=== PATIENT | male | born 1940 | race Caucasian/White ===

== ENCOUNTER → 2017-03-13 | Outpatient (CLI) | payer MEDICARE, OTHER ==
--- NOTE | 2017-03-13 21:51 | MR ---
EXAMINATION TYPE: MR lumbar spine wo con DATE OF EXAM: 03/13/2017 COMPARISON: NONE HISTORY: LBP, lt leg radic CONTRAST: 0 mL intravenous MultiHance. TECHNIQUE: Multiplanar, multisequence images of the lumbar spine were acquired. FINDINGS: L5-S1: No significant disc bulge or disc herniation. No spinal canal stenosis. No foraminal stenosi s. There is loss of disc height through this level. Facet hypertrophy is present. Some severe left f oraminal narrowing is present. L4-L5: Broad-based disc bulge has mild anterior thecal sac flattening. Facet hypertrophy is posterior lateral thecal sac compression. Moderate left foraminal narrowing is present from facet hypertrophy. L3-L4: No significant disc bulge or disc herniation. No spinal canal stenosis. No foraminal stenosi s. Some facet hypertrophy is present without posterior lateral thecal sac compression.. L2-L3: Mild disc bulging is anterior thecal sac flattening. No AP spinal canal stenosis or neural for aminal stenosis is present. No spinal canal stenosis. No foraminal stenosis. . L1-L2: No significant disc bulge or disc herniation. No spinal canal stenosis. No foraminal stenosi s. . T12-L1: No significant disc bulge or disc herniation. No spinal canal stenosis. No foraminal stenos is. . IMPRESSION: 1. Severe left foraminal stenosis L5-S1. Disc bulge and facet hypertrophy. Correlate with left S1 rad icular symptoms. 2. Degenerative disc changes L5-S1. 3. Disc bulging L4-5 with anterior thecal sac flattening. 4. Mild disc bulging with anterior thecal sac flattening L2-3
== END | disposition home or self-care (01) ==
LOC: RADMRIMAIN 16:18
PROVIDERS: ATTEND Family Medicine
DX: M99.73 Connective tissue and disc stenosis of intervertebral foramina of lumbar region (principal); M51.16 Intervertebral disc disorders with radiculopathy, lumbar region; M47.26 Other spondylosis with radiculopathy, lumbar region
CPT/HCPCS: 72148

== ENCOUNTER → 2020-04-25 | Outpatient (CLI) | payer MEDICARE, OTHER ==
--- NOTE | 2020-04-26 15:00 | PE ---
Nuclear medicine PET/CT HISTORY: Right tonsil carcinoma, initial Patient received 11.4 mCi F-18 FDG intravenously in delayed scanning was performed from the skull bas e to the mid thighs. Localization and attenuation correction CT scan was performed. Additionally ther e was small [id number] imaging obtained through the head and neck. No comparisons Chest and neck: At the level of the base of the tongue towards the right of midline as well as the va llecula to the right of midline and level of the palatine tonsil there is hypermetabolic uptake prese nt with some mild asymmetry of soft tissue present. In the submandibular location there is enlargemen t of the jugulodigastric node on the right with associated hypermetabolic uptake. Focus of uptake als o present in the right parotid gland likely due to an affected node on the right. At the level of the thyroid cartilage to the right of midline there is a node which is enlarged due to the sternocleidom astoid muscle on the right and shows associated uptake. There is no evident lung mass. No pleural or pericardial effusion, no suspicious uptake within the ch est. There is no mediastinal, axillary, or hilar adenopathy. There are coronary artery calcifications present. ABDOMEN: No suspicious uptake. There is no ascites. There is no evident suspicious liver mass or retr operitoneal adenopathy. Focus of low-attenuation on axial image 141 in the caudate lobe does not show associated uptake. Large exophytic cyst at the lower pole the left kidney is noted. Atheromatous effie nges present within the aorta. Nonobstructive calculi present in the kidneys bilaterally. Osseous structures: The level of the posterior right shoulder there is a small focus of uptake within the soft tissues which is mild and is indeterminate, may be due to physiologic muscular activity. 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
== END | disposition home or self-care (01) ==
LOC: RADPETMAIN 07:48
PROVIDERS: ATTEND Radiology Diagnostic Radiology
DX: C09.9 Malignant neoplasm of tonsil, unspecified (principal)
CPT/HCPCS: 78815; A9552

== ENCOUNTER → 2021-06-25 | Outpatient (CLI) | payer MEDICARE ==
--- NOTE | 2021-06-26 23:54 | PE ---
EXAMINATION TYPE: PET CT fusion skull to thigh DATE OF EXAM: 06/25/2021 COMPARISON: NONE prior PET/CT April 25, 2020 HISTORY: Head and neck cancer progress study. Surgical treatment for throat cancer May 12, 2020 . Completed chemotherapy and radiation treatment June 25. TECHNIQUE: Following the intravenous administration of 8.36 mCi of F-18 FDG, whole body images are p erformed from the skull base to the midthigh. Images are reviewed on the computer in the coronal, ax ial, and sagittal planes. Reconstructed rotating images are created on independent workstation and r eviewed on the computer. A localization and attenuation correction CT is performed in conjunction w ith the PET scan. Dedicated PET/CT imaging in the neck is performed. Blood glucose level equals 95. SCAN: Subsequent Scan FINDINGS: SKULL BASE AND NECK: No suspicious abnormal hypermetabolic uptake in the neck on current study. Prim cary neoplasm right tongue base not identified on current exam. Abnormal enlarged right neck adenopath y not clearly seen on current study even at level of right parotid gland. CHEST, MEDIASTINUM, AND HILAR REGION: No new areas of abnormal hypermetabolic uptake. ABDOMEN AND PELVIS: No new areas of abnormal hypermetabolic uptake. OSSEOUS STRUCTURES: No new areas of abnormal hypermetabolic uptake. OTHER CT: Mild underlying emphysematous changes are redemonstrated. Moderate coronary artery calcific ation redemonstrated. Few small calcified right renal stones. Large exophytic benign-appearing thin-walled cyst lower pole left kidney redemonstrated. Enlarged prostate consistent with BPH. Mild wall thickening in the urinar y bladder consistent without obstruction from BPH. Multilevel spurring in the spine. Moderate calcified plaque of the abdominal aorta extends into iliac branch vessels. IMPRESSION: Complete positive treatment response as detailed above. No new or residual areas of abnor mal hypermetabolic uptake seen.
== END | disposition home or self-care (01) ==
LOC: RADPETMAIN 16:54
PROVIDERS: ATTEND Internal Medicine Hematology & Oncology
DX: C76.0 Malignant neoplasm of head, face and neck (principal)
CPT/HCPCS: 78815; A9552

== ENCOUNTER → 2022-01-07 | Outpatient (CLI) | payer MEDICARE | END | disposition home or self-care (01) | LOC: RADPETMAIN 10:24 | PROVIDERS: ATTEND Internal Medicine Hematology & Oncology | DX: C76.0 Malignant neoplasm of head, face and neck (principal) | CPT/HCPCS: 78815; A9552 ==

== ENCOUNTER → 2022-10-24 | Outpatient (CLI) | payer MEDICARE ==
--- NOTE | 2022-10-24 16:24 | US ---
EXAMINATION TYPE: US carotid duplex BILAT DATE OF EXAM: 10/24/2022 COMPARISON: NONE CLINICAL HISTORY: I65.8 OCCLUSION AND STENOSIS. Patient states he has been a little forgetful. No HTN per patient. TECHNIQUE: Carotid duplex ultrasound examination. Indirect Doppler criteria was utilized. 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 Elevated bilateral CCA veloci ties. Some hard plaque with posterior shadowing is evident. IMPRESSION: 1. 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 2. Mild plaquing within the right internal carotid artery with less than 50% narrowing based on veloc ities. Criteria for Assigning % of Stenosis / Diameter reduction (Estimation based on the indirect measurements of the internal carotid artery velocities (ICA PSV). 1. Normal (no stenosis)=ICA PSV < 125 cm/s: ratio < 2.0: ICA EDV<40 cm/s. 2. Less than 50% stenosis=ICA PSV < 125 cm/s: ratio < 2.0: ICA EDV<40 cm/s. 3. 50 to 69% stenosis=ICA PSV of 125 to 230 cm/s: ration 2.0 ? 4.0: ICA EDV 40-100 cm/s. 4. Greater than 70% stenosis to near occlusion= ICA PSV > 230 cm/s: ratio > 4.0: ICA EDV > 100 cm/s. 5. Near occlusion= ICA PSV velocities may be low or undetectable: variable ratio and ICA EDV. 6. Total occlusion=unable to detect flow.
== END | disposition home or self-care (01) ==
LOC: RADUSWWP 12:47
PROVIDERS: ATTEND Psychiatry & Neurology Neurology
DX: I65.23 Occlusion and stenosis of bilateral carotid arteries (principal); I65.8 Occlusion and stenosis of other precerebral arteries
CPT/HCPCS: 93880

== ENCOUNTER 2023-03-21 16:21 | Emergency (ER) | payer MEDICARE ==
[2023-03-21 16:29] VITALS: BP 157/74; PULSE 69; RESP 18; TEMP 98.7
--- NOTE | 2023-03-21 16:31 | ED ---
General Adult HPI - General Stated complaint: something stuck in throat Source: patient Mode of arrival: ambulatory Limitations: no limitations - History of Present Illness Initial comments: 82-year-old male presenting to the ED with chief complaint of foreign body sensation. Patient states that he had an upper endoscopy today. States prior to arrival was having lunch and feels like he got a piece of rice or eggroll stuck in his throat. Denies shortness of breath. Denies hemoptysis. Denies chest pain. No other complaints. - Related Data Allergies Allergy/AdvReac Type Severity Reaction Status Date / Time No Known Allergies Allergy Verified 03/21/23 16:29 Review of Systems ROS Statement: Those systems with pertinent positive or pertinent negative responses have been documented in the HPI. ROS Other: All systems not noted in ROS Statement are negative. Past Medical History Past Medical History: Cancer, Dementia, Hypertension Additional Past Medical History / Comment(s): throat cancer History of Any Multi-Drug Resistant Organisms: None Reported Past Surgical History: No Surgical Hx Reported Past Psychological History: No Psychological Hx Reported Smoking Status: Former smoker Past Drug Use History: None Reported General Exam Limitations: no limitations General appearance: alert, in no apparent distress Neck exam: Present: normal inspection Respiratory exam: Present: normal lung sounds bilaterally, other (No respiratory distress) Cardiovascular Exam: Present: regular rate, normal rhythm Extremities exam: Present: normal inspection Back exam: Present: normal inspection Neurological exam: Present: alert Skin exam: Present: warm, dry Course Vital Signs 03/21/23 16:25 Temperature 98.7 F Pulse Rate 69 Respiratory 18 Rate Blood Pressure 157/74 O2 Sat by Pulse 97 Oximetry Medical Decision Making - Medical Decision Making Was pt. sent in by a medical professional or institution (, PA, BALL ASSEMBLER, urgent care, hospital, or penitentiary...) When possible be specific @ -No Did you speak to anyone other than the patient for history (EMS, parent, family, police, friend...)? What history was obtained from this source @ -No Did you review nursing and triage notes (agree or disagree)? Why? @ -I reviewed and agree with nursing and triage notes Were old charts reviewed (outside hosp., previous admission, EMS record, old EKG, old radiological studies, urgent care reports/EKG's, penitentiary records)? Report findings @ -No old charts were reviewed Differential Diagnosis (chest pain, altered mental status, abdominal pain women, abdominal pain men, vaginal bleeding, weakness, fever, dyspnea, syncope, headache, dizziness, GI bleed, back pain, seizure, CVA, palpatations, mental health, musculoskeletal)? @ -Differential Dyspnea: Coronary syndrome, arrhythmia, tamponade, asthma, COPD, pulmonary embolism, pneumonia, pneumothorax, pulmonary effusion, anaphylaxis, diabetic ketoacidosis, flailed chest, pulmonary contusion, diaphragmatic rupture, anemia, neuromuscular, this is not meant to be an all-inclusive list. EKG interpreted by me (3pts min.). @ -None X-rays interpreted by me (1pt min.). @ -None done CT interpreted by me (1pt min.). @ -None done U/S interpreted by me (1pt. min.). @ -None done What testing was considered but not performed or refused? (CT, X-rays, U/S, labs)? Why? @ -None What meds were considered but not given or refused? Why? @ -None Did you discuss the management of the patient with other professionals (professionals i.e. , PA, BALL ASSEMBLER, lab, RT, psych nurse, social media analyst, central aisle cashier, teacher, booking officer, corrections caseworker)? Give summary @ -No Was smoking cessation discussed for >3mins.? @ -No Was critical care preformed (if so, how long)? @ -No Were there social determinants of health that impacted care today? How? (Homelessness, low income, unemployed, alcoholism, drug addiction, transportation, low edu. Level, literacy, decrease access to med. care, assisted, rehab)? @ -No Was there de-escalation of care discussed even if they declined (Discuss DNR or withdrawal of care, Hospice)? DNR status @ -No What co-morbidities impacted this encounter? (DM, HTN, Smoking, COPD, CAD, Cancer, CVA, ARF, Chemo, Hep., AIDS, mental health diagnosis, sleep apnea, morbid obesity)? @ -None Was patient admitted / discharged? Hospital course, mention meds given and route, prescriptions, significant lab abnormalities, going to OR and other pertinent info. @ -Discharge. Patient had foreign body sensation relief with carbonated beverage at this point states that he would like to go home. At this time denies dyspnea. Is having no difficulty tolerating secretions. Discharged home in stable condition. Discussed return precautions with patient verbalizes agreement. Undiagnosed new problem with uncertain prognosis? @ -No Drug Therapy requiring intensive monitoring for toxicity (Heparin, Nitro, Insulin, Cardizem)? @ -No Were any procedures done? @ -No Diagnosis/symptom? @ -Foreign body sensation in throat Acute, or Chronic, or Acute on Chronic? @ -Acute Uncomplicated (without systemic symptoms) or Complicated (systemic symptoms)? @ -Uncomplicated Side effects of treatment? @ -No Exacerbation, Progression, or Severe Exacerbation? @ -No Poses a threat to life or bodily function? How? (Chest pain, USA, MD, pneumonia, PE, COPD, DKA, ARF, appy, cholecystitis, CVA, Diverticulitis, Homicidal, Suicidal, threat to staff... and all critical care pts) @ -No Disposition Clinical Impression: Foreign body sensation in throat Disposition: HOME SELF-CARE Condition: Good Instructions (If sedation given, give patient instructions): Foreign Body I ngestion (ED) Additional Instructions: Please return to the Emergency Department if symptoms worsen or any other concerns. Is patient prescribed a controlled substance at d/c from ED?: No Referrals: Alice Vega DO [Primary Care Provider] - 1-2 days Time of Disposition: 17:00
== END 2023-03-21 17:09 | disposition home or self-care (01) ==
LOC: EC 16:21
DX: T17.228A Food in pharynx causing other injury, initial encounter (principal); I10 Essential (primary) hypertension; Z87.891 Personal history of nicotine dependence
CPT/HCPCS: 99282

== ENCOUNTER → 2023-06-12 | Outpatient (CLI) | payer MEDICARE ==
--- NOTE | 2023-06-12 12:05 | FL ---
ESOPHOGRAM. HISTORY: Dysphagia Esophagram was performed per the air contrast technique. The patient swallowed barium and effervesce nt crystals without difficulty or delay. Esophageal peristalsis and motility appear to be within normal limits. There is no evidence for filling defect, mass or diverticulum. No hiatal hernia seen. Subsequently single contrast cervical esophagram was performed which fails demonstrate evidence for a spiration penetration or mass. IMPRESSION: Unremarkable study.
== END | disposition home or self-care (01) ==
LOC: RADUSWWP 10:54
PROVIDERS: ATTEND Otolaryngology
DX: R13.19 Other dysphagia (principal)
CPT/HCPCS: 74220

== ENCOUNTER → 2023-06-19 | Outpatient (CLI) | payer MEDICARE ==
--- NOTE | 2023-06-19 12:16 | FL ---
COMPARISON: NONE DATE OF EXAM: 06/19/2023 HISTORY: Dysphagia A number of thin and thick substances were ingested under the care of the department of speech pathol ogy. There is no evidence of aspiration or penetration. There is no evidence of obstruction. 59 se conds of fluoroscopy. Anterior hypertrophic spurring and degenerative disc disease. IMPRESSION: 1. No evidence of aspiration or penetration.
== END | disposition home or self-care (01) ==
LOC: RADFLMAIN 11:12
PROVIDERS: ATTEND Otolaryngology
DX: R13.19 Other dysphagia (principal)
CPT/HCPCS: 74230

== ENCOUNTER 2023-09-01 15:02 | Emergency (ER) | payer MEDICARE ==
[2023-09-01 15:08] VITALS: TEMP 98.1
--- NOTE | 2023-09-01 15:39 | ED ---
SOB HPI - General Chief Complaint: Shortness of Breath Stated Complaint: SOB Time Seen by Provider: 09/01/23 15:12 Source: patient, RN notes reviewed, old records reviewed Mode of arrival: ambulatory Limitations: no limitations - History of Present Illness Initial Comments: This is an 82-year-old male to the ER for evaluation of severe shortness of keren th and chest pain. Patient feels well after rest. But patient has refused symptom domes yesterday worsening symptoms today both benefits of significant exertion. No fevers no travel history no sick contacts occasional chest pain but mainly shortness of breath especially with his normal daily activities of daily living MD Complaint: shortness of breath, cough, chest pain, anxiety -: hour(s) - Related Data Home Medications Medication Instructions Recorded Confirmed Aspirin EC [Ecotrin Low Dose] 81 mg PO HS@1700 09/01/23 09/01/23 Donepezil [Aricept] 10 mg PO DAILY 09/01/23 09/01/23 Ezetimibe/Simvastatin 1 tab PO HS@1700 09/01/23 09/01/23 [Ezetimibe/Simvastatin 10-80 mg] Famotidine 40 mg PO BID-W/MEALS 09/01/23 09/01/23 Fluoride (Sodium) [Dentagel] 1 dose DENTAL HS 09/01/23 09/01/23 Levothyroxine Sodium [Synthroid] 50 mcg PO AC-BRKFST 09/01/23 09/01/23 Memantine [Namenda] 10 mg PO DAILY 09/01/23 09/01/23 Montelukast [Singulair] 10 mg PO DAILY 09/01/23 09/01/23 Mv-Min/Folic/K1/Lycopen/Lutein 1 tab PO HS@1700 09/01/23 09/01/23 [Centrum Silver Men Tablet] Omeprazole/Sodium Bicarbonate 1 cap PO DIRECTED PRN 09/01/23 09/01/23 [Zegerid 40 mg Capsule] Tamsulosin [Flomax] 0.8 mg PO HS 09/01/23 09/01/23 amLODIPine [Norvasc] 5 mg PO HS@1700 09/01/23 09/01/23 Allergies Allergy/AdvReac Type Severity Reaction Status Date / Time No Known Allergies Allergy Verified 09/01/23 17:53 Review of Systems ROS Statement: Those systems with pertinent positive or pertinent negative responses have been documented in the HPI. ROS Other: All systems not noted in ROS Statement are negative. Past Medical History Past Medical History: Cancer, Dementia, Hypertension Additional Past Medical History / Comment(s): throat cancer History of Any Multi-Drug Resistant Organisms: None Reported Past Surgical History: No Surgical Hx Reported Past Psychological History: No Psychological Hx Reported Smoking Status: Former smoker Past Alcohol Use History: None Reported Past Drug Use History: None Reported General Exam Limitations: no limitations General appearance: alert, in no apparent distress Head exam: Present: atraumatic, normocephalic, normal inspection Eye exam: Present: normal appearance, PERRL, EOMI. Absent: scleral icterus, conjunctival injection, periorbital swelling ENT exam: Present: normal exam, mucous membranes moist Neck exam: Present: normal inspection. Absent: tenderness, meningismus, lymphadenopathy Respiratory exam: Present: normal lung sounds bilaterally. Absent: respiratory distress, wheezes, rales, rhonchi, stridor Cardiovascular Exam: Present: regular rate, normal rhythm, normal heart sounds. Absent: systolic murmur, diastolic murmur, rubs, gallop, clicks GI/Abdominal exam: Present: soft, normal bowel sounds. Absent: distended, tenderness, guarding, rebound, rigid Extremities exam: Present: normal inspection, full ROM, normal capillary refill. Absent: tenderness, pedal edema, joint swelling, calf tenderness Back exam: Present: normal inspection Neurological exam: Present: alert, oriented X3, CN II-XII intact Psychiatric exam: Present: normal affect, normal mood Skin exam: Present: warm, dry, intact, normal color. Absent: rash Course Vital Signs 09/01/23 09/01/23 09/01/23 15:05 15:38 17:00 Temperature 98.1 F Pulse Rate 83 72 Respiratory 20 16 18 Rate Blood Pressure 160/83 135/79 O2 Sat by Pulse 95 Oximetry 09/01/23 09/01/23 09/01/23 18:19 19:21 19:31 Temperature Pulse Rate 73 73 77 Respiratory 18 10 L 16 Rate Blood Pressure 110/78 133/75 O2 Sat by Pulse 98 97 Oximetry - Reevaluation(s) Reevaluation #1: Medical records reviewed Reevaluation #2: Patient symptoms are unchanged Reevaluation #3: Patient informed of results and questions answered Reevaluation #4: Was pt. sent in by a medical professional or institution ([facility], [employer], urgent care, hospital, or long term...) When possible be specific @ -no Did you speak to anyone other than the patient for history (EMS, parent, family, police, friend...)? What history was obtained from this source @ -no Did you review nursing and triage notes (agree or disagree)? Why? @ -agree Are old charts reviewed (outside hosp., previous admission, EMS record, old EKG, old radiological studies, urgent care reports/EKG's, long term records)? Report findings @ -yes Differential Diagnosis (chest pain, altered mental status, abdominal pain women, abdominal pain men, vaginal bleeding, weakness, fever, dyspnea, syncope, headache, dizziness, GI bleed, back pain, seizure, CVA, palpatations, mental health, musculoskeletal)? @ -prior EKG interpreted by me (3pts min.). @ -yes X-rays interpreted by me (1pt min.). @ -yes negative for acute disease CT interpreted by me (1pt min.). @ -Yes negative for acute disease U/S interpreted by me (1pt. min.). @ -no What testing was considered but not performed or refused? (CT, X-rays, U/S, labs)? Why? @ -none What meds were considered but not given or refused? Why? @ -none Did you discuss the management of the patient with other professionals (professionals i.e. [facility], [employer], lab, RT, psych nurse, long term care social worker, manager of human resources, teacher, investment officer, manager case management)? Give summary @ -no Was smoking cessation discussed for >3mins.? @ -no Was critical care preformed (if so, how long)? @ -no Were there social determinants of health that impacted care today? How? (Homelessness, low income, unemployed, alcoholism, drug addiction, transportation, low edu. Level, literacy, decrease access to med. care, [place] [facility], rehab)? @ -none Was there de-escalation of care discussed even if they declined (Discuss DNR or withdrawal of care, Hospice)? DNR status @ -no What co-morbidities impacted this encounter? (DM, HTN, Smoking, COPD, CAD, Cancer, CVA, ARF, Chemo, Hep., AIDS, mental health diagnosis, sleep apnea, morbid obesity)? @ -none Was patient admitted / discharged? Hospital course, mention meds given and route, prescriptions, significant lab abnormalities, going to OR and other pertinent info. @ - 82 male to ER for evaluation of chest pain chest pain and shortness of breath with activity today while working in the yard. Patient has initially mild elevation of troponin which is now lowered. Patient has no acute findings on imaging and can be discharged home as he currently feels well Discharge Undiagnosed new problem with uncertain prognosis? @ -no Drug Therapy requiring intensive monitoring for toxicity (Heparin, Nitro, Insulin, Cardizem)? @ -no Were any procedures done? @ -no Diagnosis/symptom? @ -Exertional dyspnea Acute, or Chronic, or Acute on Chronic? @ -Acute Uncomplicated (without systemic symptoms) or Complicated (systemic symptoms)? @ -Complicated Side effects of treatment? @ -no Exacerbation, Progression, or Severe Exacerbation? @ -exacerbation Poses a threat to life or bodily function? How? (Chest pain, [place], [place], pneumonia, PE, COPD, DKA, ARF, appy, cholecystitis, CVA, Diverticulitis, Homicidal, Suicidal, threat to staff... and all critical care pts) @ -yes with a significant extremes of age Reevaluation #5: Differential Dyspnea: Coronary syndrome, arrhythmia, tamponade, asthma, COPD, pulmonary embolism, pneumonia, pneumothorax, pulmonary effusion, anaphylaxis, diabetic ketoacidosis, flailed chest, pulmonary contusion, diaphragmatic rupture, anemia, neuromuscular, this is not meant to be an all-inclusive list. Medical Decision Making - Medical Decision Making 82 male to ER for evaluation of chest pain chest pain and shortness of breath with activity today while working in the yard. Patient has initially mild elevation of troponin which is now lowered. Patient has no acute findings on imaging and can be discharged home as he currently feels well - Lab Data Result diagrams: 09/01/23 15:51 09/01/23 15:51 Lab Results 09/01/23 09/01/23 09/01/23 Range/Units 15:51 15:51 15:51 WBC 5.4 (3.8-10.6) k/uL RBC 3.22 L (4.30-5.90) m/uL Hgb 10.9 L (13.0-17.5) gm/dL Hct 31.5 L (39.0-53.0) % MCV 97.8 (80.0-100.0) fL MCH 33.7 (25.0-35.0) pg MCHC 34.5 (31.0-37.0) g/dL RDW 13.0 (11.5-15.5) % Plt Count 209 (150-450) k/uL MPV 7.5 Neutrophils % 73 % Lymphocytes % 13 % Monocytes % 7 % Eosinophils % 5 % Basophils % 1 % Neutrophils # 3.9 (1.3-7.7) k/uL Lymphocytes # 0.7 L (1.0-4.8) k/uL Monocytes # 0.4 (0-1.0) k/uL Eosinophils # 0.3 (0-0.7) k/uL Basophils # 0.1 (0-0.2) k/uL PT 10.1 (10.0-12.5) sec INR 0.9 (<1.2) APTT 22.0 (22.0-30.0) sec D-Dimer (<0.60) mg/L FEU Sodium 139 (137-145) mmol/L Potassium 4.2 (3.5-5.1) mmol/L Chloride 111 H (98-107) mmol/L Carbon Dioxide 20 L (22-30) mmol/L Anion Gap 8 mmol/L BUN 23 H (9-20) mg/dL Creatinine 1.93 H (0.66-1.25) mg/dL Est GFR (CKD-EPI)AfAm 36 (>60 ml/min/1.73 sqM) Est GFR (CKD-EPI)NonAf 31 (>60 ml/min/1.73 sqM) Glucose 104 H (74-99) mg/dL Plasma Lactic Acid Ty (0.7-2.0) mmol/L Calcium 9.1 (8.4-10.2) mg/dL Magnesium 2.1 (1.6-2.3) mg/dL Total Bilirubin 0.5 (0.2-1.3) mg/dL AST 24 (17-59) U/L ALT 20 (4-49) U/L Alkaline Phosphatase 65 (38-126) U/L Troponin I (0.000-0.034) ng/mL NT-Pro-B Natriuret Pep 180 pg/mL Total Protein 7.0 (6.3-8.2) g/dL Albumin 4.2 (3.5-5.0) g/dL 09/01/23 09/01/23 09/01/23 Range/Units 15:51 15:51 15:51 WBC (3.8-10.6) k/uL RBC (4.30-5.90) m/uL Hgb (13.0-17.5) gm/dL Hct (39.0-53.0) % MCV (80.0-100.0) fL MCH (25.0-35.0) pg MCHC (31.0-37.0) g/dL RDW (11.5-15.5) % Plt Count (150-450) k/uL MPV Neutrophils % % Lymphocytes % % Monocytes % % Eosinophils % % Basophils % % Neutrophils # (1.3-7.7) k/uL Lymphocytes # (1.0-4.8) k/uL Monocytes # (0-1.0) k/uL Eosinophils # (0-0.7) k/uL Basophils # (0-0.2) k/uL PT (10.0-12.5) sec INR (<1.2) APTT (22.0-30.0) sec D-Dimer 1.26 H (<0.60) mg/L FEU Sodium (137-145) mmol/L Potassium (3.5-5.1) mmol/L Chloride (98-107) mmol/L Carbon Dioxide (22-30) mmol/L Anion Gap mmol/L BUN (9-20) mg/dL Creatinine (0.66-1.25) mg/dL Est GFR (CKD-EPI)AfAm (>60 ml/min/1.73 sqM) Est GFR (CKD-EPI)NonAf (>60 ml/min/1.73 sqM) Glucose (74-99) mg/dL Plasma Lactic Acid Ty 1.3 (0.7-2.0) mmol/L Calcium (8.4-10.2) mg/dL Magnesium (1.6-2.3) mg/dL Total Bilirubin (0.2-1.3) mg/dL AST (17-59) U/L ALT (4-49) U/L Alkaline Phosphatase (38-126) U/L Troponin I 0.061 H* (0.000-0.034) ng/mL NT-Pro-B Natriuret Pep pg/mL Total Protein (6.3-8.2) g/dL Albumin (3.5-5.0) g/dL 09/01/23 Range/Units 18:33 WBC (3.8-10.6) k/uL RBC (4.30-5.90) m/uL Hgb (13.0-17.5) gm/dL Hct (39.0-53.0) % MCV (80.0-100.0) fL MCH (25.0-35.0) pg MCHC (31.0-37.0) g/dL RDW (11.5-15.5) % Plt Count (150-450) k/uL MPV Neutrophils % % Lymphocytes % % Monocytes % % Eosinophils % % Basophils % % Neutrophils # (1.3-7.7) k/uL Lymphocytes # (1.0-4.8) k/uL Monocytes # (0-1.0) k/uL Eosinophils # (0-0.7) k/uL Basophils # (0-0.2) k/uL PT (10.0-12.5) sec INR (<1.2) APTT (22.0-30.0) sec D-Dimer (<0.60) mg/L FEU Sodium (137-145) mmol/L Potassium (3.5-5.1) mmol/L Chloride (98-107) mmol/L Carbon Dioxide (22-30) mmol/L Anion Gap mmol/L BUN (9-20) mg/dL Creatinine (0.66-1.25) mg/dL Est GFR (CKD-EPI)AfAm (>60 ml/min/1.73 sqM) Est GFR (CKD-EPI)NonAf (>60 ml/min/1.73 sqM) Glucose (74-99) mg/dL Plasma Lactic Acid Ty (0.7-2.0) mmol/L Calcium (8.4-10.2) mg/dL Magnesium (1.6-2.3) mg/dL Total Bilirubin (0.2-1.3) mg/dL AST (17-59) U/L ALT (4-49) U/L Alkaline Phosphatase (38-126) U/L Troponin I 0.060 H* (0.000-0.034) ng/mL NT-Pro-B Natriuret Pep pg/mL Total Protein (6.3-8.2) g/dL Albumin (3.5-5.0) g/dL - EKG Data -: EKG Interpreted by Me (EKG is sinus 81 NH 182 QRS 157 QTc 447) - Radiology Data Radiology results: report reviewed (Chest x-ray and CTA chest are negative for acute disease), image reviewed Disposition Clinical Impression: Dyspnea Disposition: HOME SELF-CARE Condition: Good Instructions (If sedation given, give patient instructions): Dyspnea (ED) Is patient prescribed a controlled substance at d/c from ED?: No Referrals: Alice Vega DO [Primary Care Provider] - 1-2 days Time of Disposition: 19:10
[2023-09-01 16:13] LABS: Basophils # (A) 0.1 k/uL (0-0.2); Basophils % (A) 1 %; Eosinophils # (A) 0.3 k/uL (0-0.7); Eosinophils % (A) 5 %; HCT 31.5 % (39.0-53.0); HGB 10.9 gm/dL (13.0-17.5); Lymphocytes # (A) 0.7 k/uL (1.0-4.8); Lymphocytes % (A) 13 %; MCH 33.7 pg (25.0-35.0); MCHC 34.5 g/dL (31.0-37.0); MCV 97.8 fL (80.0-100.0); Mean Platelet Volume 7.5; Monocytes # (A) 0.4 k/uL (0-1.0); Monocytes % (A) 7 %; Neutrophils # (A) 3.9 k/uL (1.3-7.7); Neutrophils % (A) 73 %; Platelet Count 209 k/uL (150-450); RBC 3.22 m/uL (4.30-5.90); WBC 5.4 k/uL (3.8-10.6)
[2023-09-01 16:17] LABS: INR 0.9 (<1.2); Prothrombin Time 10.1 sec (10.0-12.5)
[2023-09-01 16:19] LABS: ALT 20 U/L (4-49); AST 24 U/L (17-59); African American GFR (CKD) 36 (>60 ml/min/1.73 sqM); Albumin 4.2 g/dL (3.5-5.0); Alkaline Phosphatase 65 U/L (38-126); Anion Gap 8 mmol/L; Blood Urea Nitrogen 23 mg/dL (9-20); Calcium 9.1 mg/dL (8.4-10.2); Carbon Dioxide 20 mmol/L (22-30); Chloride 111 mmol/L (98-107); Glucose 104 mg/dL (74-99); Magnesium 2.1 mg/dL (1.6-2.3); Non-African American GFR(CKD) 31 (>60 ml/min/1.73 sqM); Potassium 4.2 mmol/L (3.5-5.1); Sodium 139 mmol/L (137-145); Total Bilirubin 0.5 mg/dL (0.2-1.3)
[2023-09-01 16:28] LABS: NT-Pro-B-Type Natriuretic Pept 180 pg/mL
--- NOTE | 2023-09-01 16:46 | XR ---
EXAMINATION TYPE: XR chest 1V portable DATE OF EXAM: 09/01/2023 4:27 PM CLINICAL INDICATION:Male, 82 years old with history of sob; [facility] COMPARISON: Chest radiographs from 01/15/2018 TECHNIQUE: XR chest 1V portable Frontal view of the chest. FINDINGS: Lungs/Pleura: There is no evidence of pleural effusion, focal consolidation, or pneumothorax. Pulmonary vascularity: Unremarkable. Heart/mediastinum: Cardiomediastinal silhouette is unremarkable. Musculoskeletal: No acute osseous pathology. IMPRESSION: Low lung volumes with a generalized hazy appearance which could represent atelectasis versus pulmonar y edema correlate with serum BNP.
[2023-09-01] MEDS: SODIUM CHLORIDE 0.9% 1,000 ML IV STA ×2 (17:08→19:30)
--- NOTE | 2023-09-01 18:00 | CT ---
EXAMINATION TYPE: CT angio chest DATE OF EXAM: 09/01/2023 COMPARISON: CT chest December 2012 HISTORY: elevated d-dimer. Chest pain. History of head and neck cancer. CT DLP: 330.8 mGycm. Automated Exposure Control for Dose Reduction was Utilized. CONTRAST: CTA scan of the thorax is performed with IV Contrast, patient injected with 80 mL of Isovue 300, pulm onary embolism protocol. MIP Images are created on CT scanner and reviewed. FINDINGS: LUNGS: Overall mosaic attenuation. Dependent opacity favoring atelectasis in both lower lobes. No brigido picious focal consolidation. No pleural effusion or pneumothorax is seen. MEDIASTINUM: Suboptimal study with most dense contrast in the SVC but no convincing CT evidence for a cute pulmonary embolism. Some enhancement of the aorta without aneurysm or dissection. There is moder ate to severe coronary artery calcification present. No cardiomegaly or pericardial effusion is seen. Small size thyroid gland is noted. OTHER: Small degree of bilateral subareolar gynecomastia is redemonstrated. IMPRESSION: 1. Suboptimal study without acute pulmonary embolism. 2. Mosaic attenuation suggests mild alveolar edema, correlate for fluid overload state. No suspicious focal consolidation is present.
[2023-09-01 19:41] VITALS: BP 133/75; PULSE 77; RESP 16
== END 2023-09-01 19:34 | disposition home or self-care (01) ==
LOC: EC 15:02
DX: I45.10 Unspecified right bundle-branch block (principal); I44.4 Left anterior fascicular block; I10 Essential (primary) hypertension; Z87.891 Personal history of nicotine dependence; Z79.82 Long term (current) use of aspirin; Z79.899 Other long term (current) drug therapy
CPT/HCPCS: 99285; 96360; 36415; 93005; 85379; 83880; 80053; 83605; 83735; 84484; 85025; 85610; 85730; 71045; 71275; Q9967

== ENCOUNTER → 2023-09-13 | Outpatient (CLI) | payer MEDICARE ==
--- NOTE | 2023-09-13 11:29 | CA ---
Lexiscan Nuclear Stress Test Report Name: Lencho Jaimes Exam Date: 09/13/2023 10:41 Exam Location: [facility] Ht (in): 68 Wt (lb): 175 BSA: 1.93 Ordering Phys: Alice Vega DO Referring Phys: Alice Vega DO Technologist: Manuel Berrios Age: 82 Gender: M : 1940 Procedure CPT: Indications: R06.02 SOB R07.89 CHEST PAIN ICD-10 Codes: Patient History: Shortness of breath and hypertension Medications: Meds past 24 hrs: Pretest Chest Pain: STRESS TEST Lexiscan Protocol Exercise Duration (min:sec): 02:[address] Depressions (mm): Angina Score: Dutton Score: Resting HR (bpm): 75 Peak HR (bpm): 88 Resting BP (mmHg): 138 / 74 Peak BP (mmHg): / 62 MPHR: 136 Target HR: 116 % MPHR: 65 METS: 1.0 Total Dose: Peak Dose: Atropine: Double Product: BP Response: Stress Termination: Infusion complete Stress Symptoms: No chest pain or symptoms Stress Summary: ECG ANALYSIS Resting ECG: Sinus rhythm right bundle branch block Stress ECG: No significant ST-T wave changes that are diagnostic for ischemia with Lexiscan infusion. There were frequent monomorphic PVCs during stress and recovery phase. CONCLUSIONS Normal clinical and hemodynamic response to Lexiscan infusion Nonischemic ECG response to Lexiscan infusion. Frequent PVCs. Overall normal ECG portion of the stress test Please refer to the nuclear imaging portion of the stress test for the complete interpretation of this study Dr Chilango Rivera (Electronically Signed) Final Date: 13 September 2023 11:28
--- NOTE | 2023-09-14 12:02 | NM ---
EXAMINATION TYPE: NM stress lexiscan cardiolite DATE OF EXAM: 09/14/2023 COMPARISON: NONE CLINICAL INDICATION: Male, 82 years old with history of R06.02 SOB R07.89 CHEST PAIN; TECHNIQUE: After the intravenous administration of 9.8 mCi Tc 99m Sestamibi - Cardiolite resting SPE CT images acquired 45 minutes post injection. The patient received 0.4mg Lexiscan, 25.3 mCi Tc 99m Sestamibi - Stress images obtained [address] injection FINDINGS: Review of stress and rest SPECT images demonstrates prominent fixed perfusion defect along the inferi or wall. No discrete reversibility is seen. Gated analysis shows normal wall motion with an estimated left ventricular ejection fraction of 64 %. TID is calculated at 0.98, within normal limits. IMPRESSION: Large fixed perfusion defect along the inferior wall suspected to represent diaphragmatic attenuation artifact rather than old infarct. Clinically correlate. No scintigraphic evidence for in ducible ischemia.
== END | disposition home or self-care (01) ==
LOC: RADNMMAIN 08:38
PROVIDERS: ATTEND Family Medicine
DX: I49.3 Ventricular premature depolarization (principal); R06.02 Shortness of breath; R07.89 Other chest pain
CPT/HCPCS: 78452; 93017

== ENCOUNTER → 2023-11-07 | Outpatient (CLI) | payer MEDICARE ==
--- NOTE | 2023-11-07 22:35 | US ---
EXAMINATION TYPE: US kidneys/renal and bladder DATE OF EXAM: 11/07/2023 COMPARISON: PET CT 01/07/2022 CLINICAL INDICATION: Male, 82 years old with history of R10.9 UNSPECIFIED ABDOMINAL PAIN; Pain within right side. EXAM MEASUREMENTS: Right Kidney: 9.9 x 5.8 x 5.3 cm Left Kidney: Unable to accurately measure length. AP measures 5.0 cm and width measures 4.2 cm. Right Kidney: *Hyperechoic, calcified area with shadowing seen lower pole: 2.1 x 1.7 x 1.9 cm. Large stone is suspected. This may be related to prior surgery. Consider alternative imaging such as CT. Multiple anechoic areas seen. Largest at lower pole measures 2.0 x 2.0 x 2.1 cm. Left Kidney: Anechoic area seen lower pole: 9.9 x 10.2 x 8.3 cm. Bladder: Appears anechoic. Bilateral Jets seen: Yes IMPRESSION: 1. Suspected large inferior pole right renal stone. This is not evident on a prior CT. Recommend repe at CT to reevaluate this area. 2. Multiple renal cysts
== END | disposition home or self-care (01) ==
LOC: RADUSWWP 15:54
PROVIDERS: ATTEND Family Medicine
DX: N28.1 Cyst of kidney, acquired (principal)
CPT/HCPCS: 76770

== ENCOUNTER → 2023-11-13 | Outpatient (CLI) | payer MEDICARE ==
--- NOTE | 2023-11-17 12:25 | CT ---
EXAMINATION TYPE: CT abdomen pelvis wo con CT DLP: 841 mGycm, Automated exposure control for dose reduction was used. DATE OF EXAM: 11/13/2023 2:13 PM COMPARISON: Compared to reports from PET/CT of 01/07/2022 for head and neck carcinoma. CLINICAL INDICATION:Male, 82 years old with history of R93.49 R10.9; RIGHT FLANK PAIN TECHNIQUE: Axial CT abdomen pelvis wo con;Sagittal and coronal reformats were created on a separate workstation. Contrast used: mL of , (none if empty) Oral contrast used: without Oral Contrast (none if empty) FINDINGS: LOWER CHEST: Unremarkable ABDOMEN LIVER: Unremarkable GALLBLADDER AND BILE DUCTS: 2 small stones near the neck of the gallbladder. PANCREAS: Unremarkable. SPLEEN: Unremarkable. ADRENAL GLANDS: Unremarkable. KIDNEYS AND URETERS: No evidence of hydronephrosis. Ureters are nondilated. Bilateral nephroliths are present. There is a 13 mm right kidney cyst with moderate amount of calcification in the clancy. Ther e is a 9.7 cm left lower pole kidney cyst containing few calcifications in the wall. PELVIS BLADDER: Moderately distended otherwise unremarkable REPRODUCTIVE: Unremarkable. ABDOMEN & PELVIS STOMACH AND BOWEL: Stomach and duodenum are unremarkable. No evidence of bowel obstruction. PERITONEUM/RETROPERITONEUM: No evidence of pneumoperitoneum or free fluid. VASCULATURE: No evidence of aortic aneurysm. MUSCULOSKELETAL: No acute osseous abnormalities LYMPH NODES: No gross evidence for lymphadenopathy. SOFT TISSUE/ABDOMINAL WALL: Unremarkable IMPRESSION: 1. Mildly complicated large left renal cyst. Left nephrolithiasis. 2. Moderately complicated 13 mm right kidney cyst. 3. Moderately distended urinary bladder. No bladder stones identified.
== END | disposition home or self-care (01) ==
LOC: RADCTMAIN 13:50
PROVIDERS: ATTEND Family Medicine
DX: N28.1 Cyst of kidney, acquired (principal); N20.0 Calculus of kidney; N32.89 Other specified disorders of bladder; R93.49 Abnormal radiologic findings on diagnostic imaging of other urinary organs
CPT/HCPCS: 74176